=== PATIENT | female | born 1945 | race Caucasian/White ===

== ENCOUNTER 2019-06-08 17:55 | Emergency (ER) | payer OTHER ==
[~2019-06-08] VITALS: Ht 170.2 cm; Wt 79.4 kg
[~2019-06-08 17:55] MED LIST: ASPIRIN325 MG PO; MACROBID 100 M100 MG PO; NORCO 5-325 TA1 EACH PO; ROBAXIN-750750 MG PO
== END 2019-06-08 20:03 | disposition home or self-care (01) ==
LOC: ED 17:55
PROC: 0T9B70Z Drainage of Bladder with Drainage Device, Via Natural or Artificial Opening (ICD-10-PCS; principal; 2019-06-08)
DX: Z00.00 Encounter for general adult medical examination without abnormal findings (principal); F03.90 Unspecified dementia, unspecified severity, without behavioral disturbance, psychotic disturbance, mood disturbance, and anxiety; Z79.82 Long term (current) use of aspirin
CPT/HCPCS: 51701; 80053; 80176; 81001; 84443; 85025; 99284-25; G0480

== ENCOUNTER 2019-07-25 18:48 | Emergency (ER) | payer SELFPAY ==
[~2019-07-25] VITALS: Ht 170.2 cm; Wt 79.4 kg
[2019-07-25] MEDS ORDERED: QUETIAPINE FUMA25 MG PO (19:06)
[2019-07-25] MEDS ORDERED: BACTRIM DS TAB1 EACH PO (19:37)
== END 2019-07-25 20:11 | disposition home or self-care (01) ==
LOC: ED 18:48
DX: N39.0 Urinary tract infection, site not specified (principal); F03.91 Unspecified dementia, unspecified severity, with behavioral disturbance; Z88.8 Allergy status to other drugs, medicaments and biological substances; Z79.899 Other long term (current) drug therapy
CPT/HCPCS: 99283

== ENCOUNTER 2019-07-26 12:19 | Emergency (ER) | payer SELFPAY ==
[~2019-07-26] VITALS: Ht 170.2 cm; Wt 79.4 kg
== END 2019-07-26 14:49 | disposition home or self-care (01) ==
LOC: ED 12:19
DX: F03.91 Unspecified dementia, unspecified severity, with behavioral disturbance (principal); Z88.8 Allergy status to other drugs, medicaments and biological substances; Z79.899 Other long term (current) drug therapy
CPT/HCPCS: 99284

== ENCOUNTER 2019-07-31 23:21 | Emergency (ER) | payer SELFPAY ==
[~2019-07-31] VITALS: Ht 170.2 cm; Wt 79.4 kg
[~2019-07-31 23:21] MED LIST changes: +BACTRIM DS TAB1 EACH PO; +QUETIAPINE FUMA25 MG PO
--- OUTSIDE RECORDS SUMMARY | 2019-07-31 23:24 | XMS ---
PreManage Notification: HASMUKH HANSEN Security Scanner Operator Events No recent Security Events currently on file CRITERIA MET - [facility] - Has Care Guidelines - [facility] - 2 Visits in 30 Days CARE PROVIDERS MARIA FERNANDA HIGGINS Internal Medicine 06/09/2019-Current PHONE: Unknown Zoya has no Care Guidelines for this patient. Care History Medical/Surgical 07/28/2019 [facility] Tita with [facility] will call to schedule patient\T\#39;s follow up visit with clinic. 06/09/2019 [facility] - Patient is currently established with [facility]. If patient is seen in the ED during business hours. Please contact CHWs at [facility]. Care Recommendation: If this patient has had 5 or more Emergency Department visits in the last 12 months.\T\nbsp; Patient will require education on the scope and purpose of the ED as an acute care provider not a Primary Care Provider and should not be utilized for chronic conditions.\T\nbsp; These are guidelines and the provider should exercise clinical judgment when providing care. E.D. VISIT COUNT (12 MO.) [address] [facility] TOTAL 5 NOTE: Visits indicate total known visits. ED/UCC VISIT TRACKING (12 MO.) 07/31/2019 23:21 [facility] [place] TYPE: Emergency COMPLAINT: - URINE PROBLEM 07/26/2019 12:20 [facility] [place] TYPE: Emergency COMPLAINT: - MULTIPLE COMPLAINTS DIAGNOSES: - Allergy status to oth drug/meds/biol subst status - Other exterminator termite (current) drug therapy - Unspecified dementia with behavioral disturbance 07/25/2019 18:48 [facility] [place] TYPE: Emergency COMPLAINT: - ALTERED MENTAL STATUS DIAGNOSES: - Other symptoms and signs involving appearance and behavior - Unspecified dementia with behavioral disturbance - Urinary tract infection, site not specified - Other exterminator termite (current) drug therapy - Allergy status to oth drug/meds/biol subst status 06/08/2019 17:56 [facility] [place] TYPE: Emergency COMPLAINT: - MULTIPLE COMPLAINTS DIAGNOSES: - Encntr for general adult medical exam w/o abnormal findings - Unspecified dementia without behavioral disturbance - exterminator termite (current) use of aspirin 12/24/2018 18:33 [facility] [place] TYPE: Emergency COMPLAINT: - MEDICAL CLEARANCE DIAGNOSES: - Unspecified dementia without behavioral disturbance - Urinary tract infection, site not specified - Disorientation, unspecified INPATIENT VISIT TRACKING (12 MO.) No inpatient visits to display in this time frame [email or web address]
[2019-07-31] MEDS ORDERED: KEFLEX500 MG PO (23:30)
== END 2019-08-01 02:15 | disposition home or self-care (01) ==
LOC: ED 23:21
PROC: 0T9B70Z Drainage of Bladder with Drainage Device, Via Natural or Artificial Opening (ICD-10-PCS; principal; 2019-08-01)
DX: Z03.89 Encounter for observation for other suspected diseases and conditions ruled out (principal); F03.90 Unspecified dementia, unspecified severity, without behavioral disturbance, psychotic disturbance, mood disturbance, and anxiety; Z88.8 Allergy status to other drugs, medicaments and biological substances; Z79.899 Other long term (current) drug therapy
CPT/HCPCS: 51701; 81001; 99283-25

== ENCOUNTER 2020-03-03 17:33 | Emergency (ER) | payer MEDICARE ==
[~2020-03-03] VITALS: Ht 170.2 cm; Wt 79.4 kg
[~2020-03-03 17:33] MED LIST changes: +CIPRO500 MG PO; +KEFLEX500 MG PO
--- OUTSIDE RECORDS SUMMARY | 2020-03-03 17:36 | XMS ---
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 Care History Medical/Surgical 08/04/2019 [facility] Spoke to rep Tita at [facility].\T\nbsp; Advised she needs to set up follow up appt. with Dr. Higgins.\T\nbsp; No answer at home therapy teacher.\T\nbsp; Tita will call tomorrow. 07/28/2019 [facility] Tita with [facility] will call to schedule patient\T\#39;s follow up visit with clinic. 06/09/2019 [facility] - Patient is currently established with [facility]. If patient is seen in the ED during business hours. Please contact CHWs at [facility]. Care Recommendation: If this patient has had [...] providing care. E.D. VISIT COUNT (12 MO.) 6 [facility] TOTAL 6 NOTE: Visits indicate total known visits. ED/UCC VISIT TRACKING (12 MO.) 03/03/2020 17:34 [facility] [place] TYPE: Emergency COMPLAINT: - POSSIBLE UTI 08/08/2019 09:53 [facility] [place] TYPE: Emergency COMPLAINT: - POSS STROKE DIAGNOSES: - Transient cerebral ischemic attack, unspecified - Other detention (current) drug therapy - Allergy status to other drugs, medicaments and biological sub - Urinary tract infection, site not specified - Unspecified dementia with behavioral disturbance - Facial weakness [facility]2019 [email or web address] [place] [facility] COMPLAINT: - URINE PROBLEM DIAGNOSES: - Allergy status to other drugs, medicaments and biological sub - Other detention (current) drug therapy - Encounter for observation for other suspected diseases and co - Unspecified dementia without behavioral disturbance [facility]2019 [email or web address] [place] [facility] COMPLAINT: - MULTIPLE COMPLAINTS DIAGNOSES: - Allergy status to other drugs, medicaments and biological sub - Other 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 [place] TYPE: Emergency COMPLAINT: - MULTIPLE COMPLAINTS DIAGNOSES: - Encounter for general adult medical examination without abnor - Unspecified dementia without behavioral disturbance - termite technician (current) use of aspirin INPATIENT VISIT TRACKING (12 MO.) No inpatient visits to display in this time frame [email or web address]
[2020-03-03] MEDS ORDERED: QUETIAPINE FUM100 MG PO (17:58)
[2020-03-03] MEDS ORDERED: MILK OF MA400 MG/5 M PO (17:59)
[2020-03-03] MEDS ORDERED: TYLENOL325 MG PO (17:59)
[2020-03-03] MEDS ORDERED: KEFLEX500 MG PO (18:55)
== END 2020-03-03 19:58 | disposition home or self-care (01) ==
LOC: ED 17:33
DX: N39.0 Urinary tract infection, site not specified (principal); F03.91 Unspecified dementia, unspecified severity, with behavioral disturbance; Z88.8 Allergy status to other drugs, medicaments and biological substances; Z79.899 Other long term (current) drug therapy
CPT/HCPCS: 51701; 81001; 99284-25; J0696

== ENCOUNTER 2020-04-13 13:13 | Emergency (ER) | payer MEDICARE ==
[~2020-04-13] VITALS: Ht 170.2 cm; Wt 79.4 kg
[~2020-04-13 13:13] MED LIST changes: +MILK OF MA400 MG/5 M PO; +QUETIAPINE FUM100 MG PO; +TYLENOL325 MG PO
--- OUTSIDE RECORDS SUMMARY | 2020-04-13 13:14 | XMS ---
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 Care History Medical/Surgical 08/04/2019 [facility] Spoke to rep Tita at [facility].\T\nbsp; Advised she needs to set up follow up appt. with Dr. Higgins.\T\nbsp; No answer at outpatient receptionist.\T\nbsp; Tita will call tomorrow. 07/28/2019 [facility] Tita with [facility] will call to schedule patient\T\#39;s follow up visit with clinic. 06/09/2019 [facility] - Patient is currently established with [facility]. If patient is seen in the ED during business hours. Please contact CHWs at [facility]. Care Recommendation: If this patient has [...] providing care. E.D. VISIT COUNT (12 MO.) [address] [facility] [address] [facility] TOTAL 7 NOTE: Visits indicate total known visits. ED/UCC VISIT TRACKING (12 MO.) 04/13/2020 13:13 [facility] [place] TYPE: Emergency COMPLAINT: - INGESTION 03/03/2020 17:34 [facility] [place] TYPE: Emergency COMPLAINT: - POSSIBLE UTI DIAGNOSES: - Urinary tract infection, site not specified - Other extermination inspector (current) drug therapy - Allergy status to other drugs, medicaments and biological sub - Unspecified dementia with behavioral disturbance - Dysuria 08/08/2019 09:53 [facility] [place] TYPE: Emergency COMPLAINT: - POSS STROKE DIAGNOSES: - Transient cerebral ischemic attack, unspecified - Other penitentiary (current) drug therapy - Allergy status to other drugs, medicaments and biological sub - Urinary tract infection, site not specified - Unspecified dementia with behavioral disturbance - Facial weakness 07/31/2019 23:21 [facility] [place] TYPE: Emergency COMPLAINT: - URINE PROBLEM DIAGNOSES: - Allergy status to other drugs, medicaments and biological sub - Other extermination inspector (current) drug therapy - Encounter for observation for other suspected diseases and co - Unspecified dementia without behavioral disturbance 07/26/2019 12:20 [facility] [place] TYPE: Emergency COMPLAINT: - MULTIPLE COMPLAINTS DIAGNOSES: - Allergy status to other drugs, medicaments and biological sub - Other extermination inspector (current) drug therapy - Unspecified dementia with behavioral disturbance 07/25/2019 18:48 [facility] [place] TYPE: Emergency COMPLAINT: - ALTERED MENTAL STATUS DIAGNOSES: - Other symptoms and signs involving appearance and behavior - Unspecified dementia with behavioral disturbance - Urinary tract infection, site not specified - Other extermination inspector (current) drug therapy - Allergy status to other drugs, medicaments and biological sub 06/08/2019 17:56 [facility] [place] TYPE: Emergency COMPLAINT: - MULTIPLE COMPLAINTS DIAGNOSES: - Encounter for general adult medical examination without abnor - Unspecified dementia without behavioral disturbance - alf (current) use of aspirin INPATIENT VISIT TRACKING (12 MO.) No inpatient visits to display in this time frame [email or web address]
[2020-04-13] MEDS ORDERED: ABILIFY15 MG PO (13:24)
--- NOTE | 2020-04-13 15:48 | EKG ---
[facility] [address] [place], [place] [address] Signed Normal sinus rhythm Left axis deviation Low voltage QRS Cannot rule out Anterior infarct , age undetermined Abnormal ECG No previous ECGs available Confirmed by ANDRES SONG DO ([id number]) on 04/13/2020 3:47:45 PM Electronically Signed By: ANDRES SONG DO 04/13/20 1548 PATIENT NAME: HASMUKH HANSEN Electrocardiogram DATE OF : 43 PHYSICIAN: ANDRES SONG DO REPORT #: [id number] REPORT IS CONFIDENTIAL AND NOT TO BE RELEASED WITHOUT AUTHORIZATION
[2020-04-13] MEDS ORDERED: KEFLEX500 MG PO (16:57)
== END 2020-04-13 17:44 | disposition home or self-care (01) ==
LOC: ED 13:13
DX: N39.0 Urinary tract infection, site not specified (principal); B96.89 Other specified bacterial agents as the cause of diseases classified elsewhere; F03.90 Unspecified dementia, unspecified severity, without behavioral disturbance, psychotic disturbance, mood disturbance, and anxiety; Z88.8 Allergy status to other drugs, medicaments and biological substances; Z79.899 Other long term (current) drug therapy
CPT/HCPCS: 51701; 71045; 80053; 81001; 84484; 85025; 93005; 93010; 99285-25; G0480

== ENCOUNTER 2020-06-05 09:38 | Emergency (ER) | payer MEDICARE ==
[~2020-06-05] VITALS: Ht 170.2 cm; Wt 79.4 kg
[~2020-06-05 09:38] MED LIST changes: +ABILIFY15 MG PO
--- OUTSIDE RECORDS SUMMARY | 2020-06-05 09:42 | XMS ---
PreManage Notification: HASMUKH HANSNE Security Diabetes Physician Events No recent Security Events currently on file CRITERIA MET - [facility] - Has Care Guidelines CARE PROVIDERS MARIA FERNANDA HIGGINS Internal Medicine 06/09/2019-Current PHONE: [phone] Zoya has no Care Guidelines for this patient. Care History Medical/Surgical 04/15/2020 [facility] Patient has follow up with Dr. Higgins on 04/29/2020. 08/04/2019 [facility] Spoke to rep Tita at [facility].\T\nbsp; Advised she needs to set up follow up appt. with Dr. Higgins.\T\nbsp; No answer at intake coordinator.\T\nbsp; Tita will call tomorrow. 07/28/2019 [facility] Tita with [facility] will call to schedule patient\T\#39;s follow up visit with clinic. E.DOg VISIT COUNT (12 MO.) 8 [facility]. TOTAL 8 NOTE: Visits indicate total known visits. ED/UCC VISIT TRACKING (12 MO.) 2020 09:39 [facility] [place] TYPE: Emergency COMPLAINT: - RIB/BACK PAIN, CONSTIPATION 04/13/2020 13:13 [facility] [place] TYPE: Emergency COMPLAINT: - CONFUSION DIAGNOSES: - Urinary tract infection, site not specified - Other specified bacterial agents as the cause of diseases classified elsewhere - Allergy status to other drugs, medicaments and biological substances - Other skilled nursing (current) drug therapy - Unspecified dementia without behavioral disturbance 03/03/2020 17:34 [facility] [place] TYPE: Emergency COMPLAINT: - POSSIBLE UTI DIAGNOSES: - Urinary tract infection, site not specified - 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 [place] TYPE: Emergency COMPLAINT: - POSS STROKE DIAGNOSES: - Transient cerebral ischemic attack, unspecified - Other buttermilk drier operator (current) drug therapy - Allergy status to other drugs, medicaments and biological substances - Urinary tract infection, site not specified - Unspecified dementia with behavioral disturbance - Facial weakness 07/31/2019 23:21 [facility] [place] TYPE: Emergency COMPLAINT: - URINE PROBLEM DIAGNOSES: - Allergy status to other drugs, medicaments and biological substances - Other skilled nursing (current) drug therapy - Encounter for observation for other suspected diseases and conditions ruled out - Unspecified dementia without behavioral disturbance 07/26/2019 12:20 [facility] [place] TYPE: Emergency COMPLAINT: - MULTIPLE COMPLAINTS DIAGNOSES: - Allergy status to other drugs, medicaments and biological substances - Other buttermilk drier operator (current) drug therapy - Unspecified dementia with behavioral disturbance 07/25/2019 18:48 [facility] [place] TYPE: Emergency COMPLAINT: - ALTERED MENTAL STATUS DIAGNOSES: - Other symptoms and signs involving appearance and behavior - Unspecified dementia with behavioral disturbance - Urinary tract infection, site not specified - Other skilled nursing (current) drug therapy - Allergy status to other drugs, medicaments and biological substances 06/08/2019 17:56 [facility] [place] TYPE: Emergency COMPLAINT: - MULTIPLE COMPLAINTS DIAGNOSES: - Encounter for general adult medical examination without abnormal findings - Unspecified dementia without behavioral disturbance - 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
[2020-06-05] MEDS ORDERED: NITROFURANTOIN50 MG PO (09:59)
== END 2020-06-05 13:05 | disposition home or self-care (01) ==
LOC: ED 09:38
DX: K59.00 Constipation, unspecified (principal); F03.91 Unspecified dementia, unspecified severity, with behavioral disturbance; Z88.8 Allergy status to other drugs, medicaments and biological substances; Z79.899 Other long term (current) drug therapy
CPT/HCPCS: 74022; 99283-25

== ENCOUNTER 2020-06-21 13:28 | Inpatient (IN) | payer MEDICARE ==
[~2020-06-21] VITALS: Ht 170.2 cm; Wt 69.1 kg
[~2020-06-21 13:28] MED LIST changes: +NITROFURANTOIN50 MG PO
--- OUTSIDE RECORDS SUMMARY | 2020-06-21 13:30 | XMS ---
PreManage Notification: HASMUKH HANSEN Security Display Maker Events No recent Security Events currently on file CRITERIA MET - [facility] - Has Care Guidelines - [facility] - 2 Visits in 30 Days CARE PROVIDERS MARIA FERNANDA HIGGINS Internal Medicine 06/09/2019-Current PHONE: [phone] Zoya has no Care Guidelines for this patient. Care History Medical/Surgical 04/15/2020 [facility] Patient has follow up with Dr. Higgins on 04/29/2020. 08/04/2019 [facility] Spoke to rep Tita at [facility].\T\nbsp; Advised she needs to set up follow up appt. with Dr. Higgins.\T\nbsp; No answer at manager voice.\T\nbsp; Tita will call tomorrow. 07/28/2019 [facility] Tita with [facility] will call to schedule patient\T\#39;s follow up visit with clinic. E.D. VISIT COUNT (12 MO.) 8 [facility] TOTAL 8 NOTE: Visits indicate total known visits. ED/UCC VISIT TRACKING (12 MO.) 06/21/2020 13:29 [facility] [place] TYPE: Emergency 2020 09:39 [facility] [place] TYPE: Emergency COMPLAINT: - RIB/BACK PAIN, CONSTIPATION DIAGNOSES: - Pleurodynia - Other terminal operator (current) drug therapy - Constipation, unspecified - Unspecified dementia with behavioral disturbance - Allergy status to other drugs, medicaments and biological substances - Unspecified dementia without behavioral disturbance 04/13/2020 13:13 [facility] [place] TYPE: Emergency COMPLAINT: - CONFUSION DIAGNOSES: - Urinary tract infection, site not specified - Other specified bacterial agents as the cause of diseases classified elsewhere - Allergy status to other drugs, medicaments and biological substances - Other penitentiary (current) drug therapy - Unspecified dementia without behavioral disturbance 03/03/2020 17:34 [facility] [place] TYPE: Emergency COMPLAINT: - POSSIBLE UTI DIAGNOSES: - Urinary tract infection, site not specified - Other terminal operator (current) drug therapy - Allergy status to other drugs, medicaments and biological substances - Unspecified dementia with behavioral disturbance - Dysuria 08/08/2019 09:53 [facility] [place] TYPE: Emergency COMPLAINT: - POSS STROKE DIAGNOSES: - Transient cerebral ischemic attack, unspecified - Other terminal operator (current) drug therapy - Allergy status to other drugs, medicaments and biological substances - Urinary tract infection, site not specified - Unspecified dementia with behavioral disturbance - Facial weakness 07/31/2019 23:21 [facility] [place] TYPE: Emergency COMPLAINT: - URINE PROBLEM DIAGNOSES: - Allergy status to other drugs, medicaments and biological substances - Other penitentiary (current) drug therapy - Encounter for observation for other suspected diseases and conditions ruled out - Unspecified dementia without behavioral disturbance 07/26/2019 12:[address] [facility] [place] TYPE: Emergency COMPLAINT: - MULTIPLE COMPLAINTS DIAGNOSES: - Allergy status to other drugs, medicaments and biological substances - Other penitentiary (current) drug therapy - Unspecified dementia with behavioral disturbance 07/25/2019 18:[address] [facility] [place] TYPE: Emergency COMPLAINT: - ALTERED MENTAL STATUS DIAGNOSES: - Other symptoms and signs involving appearance and behavior - Unspecified dementia with behavioral disturbance - Urinary tract infection, site not specified - Other terminal operator (current) drug therapy - Allergy status to other drugs, medicaments and biological substances INPATIENT VISIT TRACKING (12 MO.) No inpatient visits to display in this time frame [id number]
[2020-06-21] MEDS ORDERED: METAMUCIL POWD575 G1 PO (14:07)
--- NOTE | 2020-06-21 22:00 | NUR ---
PT ARRIVES TO FLOOR VIA STRETCHER, PULLED OVER ON HOVER MAT TO BED. PT TOLERATED WELL. PT DISORIENTED TO ALL, DOES NOT ANSWER QUESTIONS APPROPRIATELY. SPEAK 1-2 WORDS AT A TIME. TELEMETRY UNIT PLACED. PT PULLING AT WIRES. BED ALARM PLACED. CALL LIGHT IN REACH. WHITE BOARD UDPATED. ROOM IN VIEW OF RN STATION WITH CURTAIN OPEN.
--- NOTE | 2020-06-21 22:00 | NUR ---
PT ARRIVES TO FLOOR FROM ED. CHARGE LAVONNE AND CATHLEEN SCHUSTERTA IN ROOM FOR ADMISSION AND VITALS. PATIENT CALM AND COOPERATIVE AT THIS TIME, NO NEEDS.
--- NOTE | 2020-06-21 23:16 | NUR ---
IV BOLUS INFUSING, PT RESTING IN BED, NO NEEDS AT THIS TIME. CURTAIN OPEN, IN VIEW OF NURSES STATION WILL CONT TO MONITOR.
--- NOTE | 2020-06-22 01:35 | NUR ---
ROUNDED ON PATIENT. IN BED WITH EYES CLOSED, BREATHING EVEN AND UNLABORED. IVF INFUSING WNL, IN VIEW OF NURSES STATION. WILL CONT TO MONITOR.
--- NOTE | 2020-06-22 02:05 | NUR ---
VITALS AND I/O'S COMPLETE. ASSESSMENT COMPLETE. PT HAD INCONTINENCE X2, CHANGED ATTENDS W JAVIER CONNOLLY, PATITO CARE DONE. PT COOPERATIVE AND RELAXED. IVF INFUSING WNL, NO OTHER APPARENT NEEDS AT THIS TIME.
--- NOTE | 2020-06-22 04:50 | NUR ---
ROUNDED ON PATIENT, AWAKE IN BED. ALUMINUM MOLDING MACHINE OPERATOR LAVONNE IN ROOM TO WRAP IV WITH COBAN TO DETER PT FROM PULLING. PT PLAYING WITH LEFTOVER COBAN. CALM, RELAXED AT THIS TIME. WILL CONT TO MONITOR.
--- NOTE | 2020-06-22 06:08 | NUR ---
PT ARRIVED TO FLOOR AT 2200, HAS BEEN CALM AND COOPERATIVE, PICKS AT IV AND TELE LEADS WHEN ALONE. ABLE TO REDIRECT WITH STUFFED BEAR, EXTRA COBAN, ETC. VSS, ALERT BUT DISORIENTED TO ALL. SPEECH INAPPROPRIATE TO CONTEXT BUT NOT GARBLED. ON TELE #4. ON ROOM AIR. IVF INFUSING WNL. INCONTINENT OF URINE. BED ALARM ON, CURTAIN OPEN, DOES NOT USE CALL LIGHT.
--- NOTE | 2020-06-22 07:31 | NUR ---
REPORT RECEIVED. PT IN BED AWAKE D5LR AT 150ML/HR INFUSING. BED ALARM IN PLACE AND VISIBLE FROM NURSING STATION.
--- NOTE | 2020-06-22 07:43 | NUR ---
PATIENT SITTING UP IN BED. WHITE BOARD UPDATED. PATIENT'S HANDS AND FACE WASHED. CALL LIGHT WITHIN REACH. NO OTHER NEEDS AT THIS TIME
--- NOTE | 2020-06-22 09:00 | NUR ---
PATIENT ASSISTED STAND BY WITH WALKER TO [facility] D/T NO VOID AND DRY ATTNDS. PY W/ VOID AND FIRM BM COMPLETED. PT THEN ASSISTED TO CHAIR FOR BREAKFAST. FOOD CUT TO BITE SIZE AND PATIENT ATE INDEPENDENTLY. CHAIR ALARM IN PLACE. ALL MEDICATIONS BUT ASPRIN CRUSHED AND PLACED IN APPLE SAUCE. LUNGS DIM. BOWEL TONES ACTIVE. PT AWAKE BUT DOES NOT FOLLOW COMMANDS OR COMMUNICATE NEEDS.
--- NOTE | 2020-06-22 09:30 | NUR ---
Attempted to speak with pt, she is unable to answer question and does not show any recognition she has been spoken to. Called her sister Perla. Pt has had dementia for several years, rapid decline in the last year. Her remote computer terminal operator boyfriend a year ago. Per sister, pt no longer recognizes family. She resides at [facility]. Sister will drive her when she returns. I called [facility] and pt may return on dc.
--- NOTE | 2020-06-22 09:34 | NUR ---
PATIENT SITTING UP IN CHAIR. PATIENT ASSISTED TO EAT HER BREAKFAST. VITAL SIGNS AND I&O DONE. CALL LIGHT WITHIN REACH. NO OTHER NEEDS AT THIS TIME
--- NOTE | 2020-06-22 11:45 | NUR ---
PATIENT SITTING UP IN CHAIR. PATIENT ASSISTED TO USE THE BASE COMMODE. TWO PERSON ASSISTING. PATIENT INCONTINENT OF URINE. PERICARE PERFORMED. PATIENT BACKS TO CHAIR. GOWN CHANGED. SETS UP TABLE FOR LUNCH. CHAIR ALARM ON. CALL LIGHT WITHIN REACH. NO OTHER NEEDS AT THIS TIME
--- NOTE | 2020-06-22 12:00 | NUR ---
PT SITTING UP IN CHAIR EATING LUNCH. CHAIR ALARM IN PLACE. VISIBLE FROM NURSING STATION.
[2020-06-22] MEDS ORDERED: [UNRECOGNIZED DRUG - OTHER] TOP (12:16)
[2020-06-22] MEDS ORDERED: MILK OF MA400 MG/5 M PO (12:17)
[2020-06-22] MEDS ORDERED: SEROQUEL25 MG PO (12:18)
--- NOTE | 2020-06-22 12:19 | NUR ---
MED REC COMPLETE
--- NOTE | 2020-06-22 12:45 | NUR ---
PT PULLED IV OUT. RESTARTED IN LEFT WRIST. WRAPPED WITH COBAN. PT SITTING UP IN CHAIR. FLUIDS INFUSING WNL NOW. CHAIR ALARM ON.
--- NOTE | 2020-06-22 12:57 | NUR ---
PATIENT SITTING UP IN CHAIR. VITAL SIGNS AND I&O DONE. CALL LIGHT WITHIN REACH. NO OTHER NEEDS AT THIS TIME
--- NOTE | 2020-06-22 13:27 | NUR ---
PT SITTING IN CHAIR, WAS UNABLE TO GET PT'S ATTENTION. PT UNRESPONSIVE, SEEMS TO BE OCCUPIED WITH SOMETHING SHE IS VISUALIZING ININ HER HAND. WILL FOLLOW
--- NOTE | 2020-06-22 14:00 | NUR ---
AMBULATED PT TO BATHROOM FOR VOID THEN OUT IN BOEWN. BACK TO CHAIR.
--- NOTE | 2020-06-22 14:46 | NUR ---
WRAPPED PT IV AGAIN PT HAD UNDONE IT. REMINDED TO LEAVE ALONE
--- NOTE | 2020-06-22 16:50 | EKG ---
[facility] [address] [place] [address] Signed Normal sinus rhythm Left axis deviation Low voltage QRS Inferior infarct , age undetermined Cannot rule out Anterior infarct (cited on or before 24-DEC-2018) Abnormal ECG When compared with ECG of 13-APR-2020 13:27, Inferior infarct is now present Inverted T waves have replaced nonspecific T wave abnormality in Inferior leads Confirmed by VIOLET GAONA MD ([id number]) on 06/22/2020 4:50:36 PM Electronically Signed By: VIOLET GAONA MD 06/22/20 1650 PATIENT NAME: HASMUKH HANSEN Electrocardiogram DATE OF : 43 PHYSICIAN: VIOLET GAONA MD REPORT #: [id number] REPORT IS CONFIDENTIAL AND NOT TO BE RELEASED WITHOUT AUTHORIZATION
--- NOTE | 2020-06-22 17:18 | NUR ---
PATIENT SITTING UP IN CHAIR. VITAL SIGNS AND I&O DONE. SETS UP TABLE FOR DINNER. CALL LIGHT WITHIN REACH. CHAIR ALARM ON. NO OTHER NEEDS AT THIS TIME
--- NOTE | 2020-06-22 17:24 | NUR ---
PT SITTING UP IN CHAIR. PULLED IV OUT. RESTARTED IN RIGHT WRIST. PT TOLERATED WELL.
--- NOTE | 2020-06-22 18:47 | NUR ---
PT PULLED IV AGAIN. RESTARTEDE IN RIGHT AC. CONSTANTIN PLACED AND GOWN PUT ON PT AND TAPED AROUND ARM.
--- NOTE | 2020-06-22 19:00 | NUR ---
REPORT RECEIVED FROM GREER RN, PT AWAKE BUT DROWSY IN BED. BREATHING EVEN AND UNLABORED. IVF INFUSING WNL, BED ALARM ON, NO APPARENT NEEDS AT THIS TIME. CURTAIN OPEN, IN VIEW OF NURSES STATION.
--- NOTE | 2020-06-22 21:00 | NUR ---
QUEENIE TORRES AND THIS ABSTRACT CHECKER HELPED PATIENT USE THE BEDSIDE COMMODE. PATIENT IS INCONTINENT. WIPED/CLEANED AND PUT ON NEW GOWN AND ATTENDS. QUEENIE TORRES WAS WITH PATIENT.
--- NOTE | 2020-06-22 21:00 | NUR ---
MEDICATIONS ADMINISTERED, VITALS AND I/O'S COMPLETE, AND ASSESSMENT COMPLETE. PT ABLE TO TAKE PILLS CRUSHED WITH APPLESAUCE. PT UP TO BSC WITH 2PA AND FWW, THEN WALKED 1 LAP [address]ALLWAY WITH THIS RN USING FWW. TOLERATED WELL. GOWN AND LINEN CHANGED, ATTENDS IN PLACE, IV WRAPPED IN KERLEX AND TUCKED UNDER ROBE TO DETER PULLING. PT HAS MULTIPLE ITEMS AT BEDSIDE TO HOLD. IS NOW TUCKED INTO BED WITH WARM BLANKET, BED ALARM ON, IN VIEW OF NURSES STATION. IV INFUSING WNL.
--- NOTE | 2020-06-22 22:00 | NUR ---
ROUNDED ON PATIENT, RESTING IN BED WITH EYES CLOSED, BREATHING EVEN AND UNLABORED. LIGHTS OFF, BED ALARM ON. CURTAIN OPEN, IN VIEW OF NURSES STATION FOR SAFETY.
--- NOTE | 2020-06-22 23:45 | NUR ---
ROUNDED ON PATIENT, UP TO BSC TO VOID. NO INCONTINENCE, 400 ML OUT. PT AWAKE IN BED, CALM AND RELAXED. CURTAIN OPEN, BED ALARM ON, WILL CONT TO MONITOR.
--- NOTE | 2020-06-23 02:17 | NUR ---
ROUNDED ON PATIENT, AWAKE SITTING UP IN BED HOLDING TAPE AND OTHER OBJECTS, FREQUENTLY ADJUSTS HERSELF BUT IS NOT ATTEMPTING TO LEAVE BED WITHOUT ASSISTANCE. CALM AND COOPERATIVE, ALTHOUGH GENERALLY DISORIENTED TO COMMANDS. CURTAIN OPEN, ABLE TO SEE FROM NURSES STATION DOES NOT CALL APPROPRIATELY. WILL CONT TO MONITOR.
--- NOTE | 2020-06-23 03:55 | NUR ---
ROUNDED ON PATIENT, AWAKE BUT DROWSY IN BED. REPOSITIONED IN BED, ASSESSMENT COMPLETE, PROVIDED WITH BLANKETS. NO OTHER NEEDS AT THIS TIME. BED ALARM ON, IN VIEW OF NURSES STATION, WILL CONT TO MONITOR.
--- NOTE | 2020-06-23 06:16 | NUR ---
VITALS COMPLETE, I/O'S COMPLETE. PT ATTENDS, LINEN AND GOWN CHANGED D/T INCONTINENCE. IVF INFUSING WNL. PT CALM AND COOPERATIVE WITH CARE. NO APPARENT NEEDS AT THIS TIME, WILL CONTINUE TO MONITOR.
--- NOTE | 2020-06-23 07:30 | NUR ---
THIS RN RECEIVED REPORT FROM MELISSA JEROME. PT LAYING IN BED. CALL LIGHT WITH REACH AND PT IS CURRENTLY PICKING AT THE BLANKETS
--- NOTE | 2020-06-23 07:51 | NUR ---
PATIENT RESTING IN BED. WHITE BOARD UPDATED. PATIENT ASSISTED TO USE THE BASE COMMODE. PATIENT TRANSFERRED TO CHAIR. TWO PERSON ASSISTING. HANDS AND FACE WASHED. LINENS CHANGED. CALL LIGHT WITHIN REACH. CHAIR ALARM ON. NO OTHER NEEDS AT THIS TIME
--- NOTE | 2020-06-23 07:55 | NUR ---
this rn in pts room to do morning asssessment on pt. pt up to chair this am and this rn got report from [facility] that pt had large bm. this rn only giving the miralax to ensure that pt remains un constepated during this shift.
--- NOTE | 2020-06-23 09:06 | NUR ---
PATIENT SITTING UP IN CHAIR. VITAL SIGNS AND I&O DONE. CALL LIGHT WITHIN REACH. NO OTHER NEEDS AT THIS TIME
--- NOTE | 2020-06-23 09:15 | NUR ---
Discussed with Dr. Saldana in 0830 report. Plans for dc tomorrow. Updated Rn needs to see pt and eval prior to dc.
--- NOTE | 2020-06-23 09:30 | NUR ---
H&P, Notes, imaging faxed to RN at [facility] per request. Rn to do assessment for change of condition.
--- NOTE | 2020-06-23 12:45 | NUR ---
THIS RN INTO PTS ROOM TO GIVE PT THE HER POTASSIUM TABLETS. PT SITTING IN CHAIR AND SPITTING HER SPIT ON THE SIDE OF THE CHAIR. THIS RN ATTEMPTED TO HAVE PT TAKE HER TABLETS BUT KEPT SPITTING THEM OUT WITH ATTEMPT OF APPLESAUCE, PUDDING AND WATER. THIS RN CALLED PHARMACY TO CHANGE THE ORDER TO LIQUID
--- NOTE | 2020-06-23 13:22 | NUR ---
PATIENT SITTING UP IN CHAIR. ASSISTED PATIENT TO USE THE BASE COMMODE. PT INCONTINENT OF URINE. PERICARE PERFORMED. PT BACKS TO BED. TWO PERSON ASSISTING. VITAL SIGNS AND I&O DONE. BED ALARM ON. CALL LIGHT WITHIN REACH. NO OTHER NEEDS AT THIS TIME. .
--- NOTE | 2020-06-23 14:00 | NUR ---
PT UNRESPONSIVE, WILL CONTINUE TO FOLLOW
--- NOTE | 2020-06-23 14:26 | NUR ---
Called to clarify with [facility] if Rn will be assessing pt today. Per 829 report plans on dc tomorrow morning. They will call and check with the RN.
--- NOTE | 2020-06-23 18:09 | NUR ---
PT SITTING UP IN CHAIR. ASSISTED PT TO USE THE BASE COMMODE. PT BACKS TO BED. TWO PERSON ASSITING. VITAL SIGNS AND I&O DONE. THIS HIDE BUYER TRIED TO FEED THE PT BUT SHE DID NOT EAT. PT DID NOT OPEN HER EYES. RN NOTIFIED. BED ALARM ON. CALL LIGHT WITHIN REACH. NO OTHER NEEDS AT THIS TIME
--- NOTE | 2020-06-23 18:20 | NUR ---
THIS RN CALLED TO ALERT HIM TO PTS EYEELIDS BEING A BIT TEARDROP DROOPY AND EDEMATOUS. STATED HE THINKS ITS DUE TO PTS GOOD HYDRATION STATUS. PTS EYES ARE NOT RED OR APPEAR TO BE PAINFUL AND PT HAS NOT BEEN RUBBING HER EYES
--- NOTE | 2020-06-23 19:20 | NUR ---
REPORT RECEIVED FROM JOE JEROME, PATIENT AWAKE IN BED, CALM AND RELAXED AT THIS TIME, IVF INFUSING WNL. NO APPARENT NEEDS AT THIS TIME, WILL CONT TO MONITOR.
--- NOTE | 2020-06-23 19:50 | NUR ---
OBSERVING PT ATEMPTING TO GET OUT OF BED, REPEATED ASKING OF PT WHERE SHE IS GOING, ABLE TO DETERMINE PT NEEDED TO VOID, MUTLIPLE TIMES TO REDIRECT PT OF TASK, PT HAS A HABIT OF SPITING IN THE FLOOR, ON SHEETS, OR GOWN, PT NOW IN BED ATFER MULTIPLE ATEMPTS TO GET PT INTO BED, RN IN AT THIS TIME TO ASST GETTING PT SITUATED WHILE I ASWERED ANOTHER PT CALL
--- NOTE | 2020-06-23 21:00 | NUR ---
GOT PT VITALS AT THIS TIME, FRESH WATER IN CUP
--- NOTE | 2020-06-23 21:50 | NUR ---
MEDICATIONS ADMINISTERED, PT ABLE TO TAKE PO MEDS CRUSHED WITH APPLESAUCE, TOOK MIRALAX WITH CLEAR ENSURE. PT VOIDED W BSC, WALKED IN HALLWAY WITH THIS RN AND DEONDRE RN. BACK TO BED WITH WARM BLANKET PROVIDED. IVF INFUSING WNL. BED ALARM ON, IN VIEW OF NURSES STATION.
--- NOTE | 2020-06-23 23:00 | NUR ---
PT NOTED TO BE DRAPING LEGS OVER SIDE OF BED. UP TO BSC, INCONTINENT OF STOOL, ATTENDS AND LINENS CHANGED. PATITO CARE DONE. PT BACK TO BED POSITIONED WITH PILLOWS. IVF INFUSING WNL. BED ALARM ON, WILL CONT TO MONITOR.
--- NOTE | 2020-06-24 00:10 | NUR ---
WHILE PASSING PT RM, CUAGHT PT WITH GOWN ALL THE WAY OFF, REDRESSED PT, PT IS LAYING DOWN IN BED AT THIS TIME
--- NOTE | 2020-06-24 02:12 | NUR ---
PATIENT RESTING IN BED, EYES CLOSED, BREATHING EVEN AND UNLABORED. NO APPARENT NEEDS OR DISTRESS. BED ALARM ON, CURTAIN OPEN. WILL CONT TO MONITOR.
--- NOTE | 2020-06-24 03:51 | NUR ---
NEW IV FLUIDS HUNG, PATIENT AWAKE, DROWSY LAYING IN BED. WAKES TO VOICE. ASSESSMENT COMPLETE. IVF INFUSING WNL. NO OTHER NEEDS AT THIS TIME. BED ALARM ON.
--- NOTE | 2020-06-24 05:30 | NUR ---
VITALS AND I/O'S COMPLETE. PT INCONTINENT W ATTENDS, CHANGED AND REPOSITIONED IN BED WITH QUEENIE MENDOSA. PT CALM AND COOPERATIVE WITH CARE, NO OTHER NEEDS AT THIS TIME. BED ALARM ON, WILL CONTINUE TO MONITOR.
--- NOTE | 2020-06-24 07:33 | NUR ---
THIS RN RECEIVED REPORT FROM MELISSA JEROME. PT SITTING UP IN BED AND IS SPITTING ON HER BEDDING. THIS RN WILL CONTINUE TO MONITOR THIS BEHAVIOR THROUGHOUT THE DAY AND WILL PROVIDE PT WITH TOWELS.
--- NOTE | 2020-06-24 08:12 | NUR ---
Latest note faxed to [facility], with notification pt will dc today if labs wnl. Awaiting labs.
--- NOTE | 2020-06-24 08:28 | NUR ---
THIS RN IN PTS ROOM TO GIVE PT HER MORNING BOWEL MEDS AND DO MORNING ASSESSMENT. PT SITTING UP IN BED AND WHEN THIS RN SAID "HI" THIS AM PT REPLIED WIHT "HI" WELL. PT THEN BEGAN SAYING WORDS THAT HAD NO CONTEXT TO THE SITUATION. PT NO OPENING EYES THIS AM. WHEN THIS RN OFFERED PT AN ENSURE THROUGH THE STRAW, SIDE OF THE CUP AND WITH A SPOON PT MOVED HER HEAD AWAY. PT APPEARS TO NOT BE INTERESTED IN HAVING ANYTHING TO DRNIK THIS AM. THIS RN WILL OFFER THE ENSURE FREQUENTLY THROUGHOUT THE AM.
--- NOTE | 2020-06-24 11:00 | NUR ---
Notifed by Liliya Castañeda from [facility] they will not take back. Informed they have to take her back. Liliya states she is above their level of care. Reminded we have asia these converstaions in the past. They have to take the proper steps and automotive service consultant her a 30 day move out notice. She states she and an RN evaluated pt and she is a 2 person assist and they will not take. Informed I am notifying the state.
--- NOTE | 2020-06-24 11:00 | NUR ---
THIS RN AND MEGHA CONNOLLY IN PTS ROOM TO CLEAN HER UP AFTER HAVING WHAT APPEARED TO BE MULTIPLE INCONTINET URINE SPELLS. PT STILL DOING HER SPITTING BEHAVIOR. PT ALSO STILL REFUSING TO TAKE SIPS OF HER ENSURE THIS AM. THIS RN WAS ABLE TO GET PT TO TAKE A COUPLE SIPS OF HER ENSURE AROUND 0945
--- NOTE | 2020-06-24 11:45 | NUR ---
Received call from Karina Vinod, pt's sister. She is very upset stating she was notified by [facility], pt cannot return. [facility] in [place] is closing tomorrow and other pts are moving to [place]. They will not take Rossy as she is above their level of care. Notified I have talked with the state, Leo Castañeda, and she is calling Evin Nilay and will call me back. Updated they have to give her a 30 day move out notice. Called and spoke with the Rn who was present when assessment by [facility] was completed. She states she became upset with the staff as when they entered one was wearing a lace mask and would not wear a hospital grade mask. They then asked several times, if pt was a 2 person assist. She told them pt was able to walk in the [place] with 1 person assist. At times they used two staff if available, but pt walked with the cosmetic dentist RN without other staff.
--- NOTE | 2020-06-24 12:20 | NUR ---
Return call from Leo Castañeda at [facility]. She states I need to call [facility]: 1. They must take pt back 2. Must give pt a 30 day move out notice 3. If they questions this, they need to contact their licensing group. She will also call them. Called Liliya at [phone] and she refuses pt and states she will call. Leo Castañeda.
[2020-06-24] MEDS ORDERED: LORAZEPAM0.5 MG PO (13:01)
--- NOTE | 2020-06-24 13:20 | NUR ---
Called Leo and asked if Mela had called. She states she has not. She will call the state and call me back. She states they are unaware [facility] is closing.
--- NOTE | 2020-06-24 13:50 | NUR ---
Notified by Freedom Cortés, Leo Castañeda called. I was on the phone so she left a message with Freedom, she request I call her back at 4 pm. They have requested [facility] respond why they are not accepting this pt.
--- NOTE | 2020-06-24 15:50 | NUR ---
Called [facility], [facility] has not responded. She states she cannot force them to take this pt, it is being reviewed by Osmar. She asks I call her tomorrow for an update. I called Karina and updated. Asked if she would like me to check for placement at other facilities. She would like me to do so, she states she is older than her sister and unable to care for her. Perla is pts POA> Called [facility] and they do not have any rooms. Called [facility] and they have 1 room in their memory care. Radha Busby requests a chart. Progress notes, med list, face sheet, H&P faxed to [facility]. They will call me back tomorrow.
--- NOTE | 2020-06-24 18:31 | NUR ---
Spoke with Leena from [facility]. She has openings in her AFC. Chart sent, she will call pt's sister and adán Blair tomorrow.
--- NOTE | 2020-06-24 19:00 | NUR ---
AROUND 1130 WENT IN TO CHECK ON PATIENT TO SEE IF SHE WAS DRY AND SHE WAS NOT. SO I ASKED KUMAR TO PLEASE COME IN AND HELP ME CHANGE HER AND WE HAD TO ALSO CHANGED HER BED LINENS.
--- NOTE | 2020-06-24 21:52 | NUR ---
In bed, room air, semi coop with assessments. does not follow instructions. picking at things, takes gown off . redirectable after a few cues. sitting up in bed, still taking off gown, calm. bed alarm on. call light at hands reach
--- NOTE | 2020-06-24 23:16 | NUR ---
INCONTINENT OF URINE, ATTENDS CHANGED, BED ALARM ON, ALL PROCEDURES EXPLAINED, COOP, TAKES GOWN OFF, COVERED WITH BLANKET. ON ROOM AIR
--- NOTE | 2020-06-24 23:17 | NUR ---
CUAGHT PT WITH LEGS OVER THE SIDE RAIL, BED ALARM SET OFF, CHANGE PT DUE TO INCT, BOOSTED IN BED, GOWN PUT BACK ON PT, ALARM SET AT THIS TIME
--- NOTE | 2020-06-25 00:57 | NUR ---
RESTING, EYES CLOSED, CALM, TOOK CLOTHES AND LINEN OFF, WARM BLANKET APPLIED. CALL GAYTAN AT HANDS REACH
--- NOTE | 2020-06-25 01:50 | NUR ---
IN RM DUE TO PT GETTING OUT OF BED, GOT PT BACK INTO BES, GOWN BACK ON, CHANGED PT ATTENDS, NO FURTHER NEEDS AT THIS TIME
--- NOTE | 2020-06-25 03:15 | NUR ---
resting, sitting up in bed, calm, call light at hands reach, bed alarm on.
--- NOTE | 2020-06-25 05:25 | NUR ---
Pt awake, trying to get out of bed several times, sleeps off and on on sitting position. trying to pull things out of air or from covers. Takes her gown and linens off often. has been incontinent of urise several times. attends in place and changed. skin care done. walked 1 pa/fww around bed and back into bed. did well. Not drinking when given fluids. took SL off. site intact. call light at hands reach. bed alarm on. pt baseline confusion, all procedures explained. takes several cues but is unable to follow instructions fall precautions in place
--- NOTE | 2020-06-25 09:00 | NUR ---
Called and spoke with Leena from [facility]. She states she spoke with the sister and she felt Rossy needs to be in a locked unit. Called and spoke with Wendy from [facility]. Reviewed pt has not been agitated or acting out since she has been here. They will call the sister to discuss admission and pricing.
--- NOTE | 2020-06-25 09:45 | NUR ---
pt given morning meds with apple sauce. morning assessment completed. Lungs clear, bowel tones active. Awaiting placement as DC order was given by MD yesterday. Encouraging fluid intake and aide in to help pt with eating breakfast. Pt remains incontinent x2. Briefs changed and in fresh gown. Bed alarm on and side rails up for pt safety. Call light in reach but pt does not use appropriately.
--- NOTE | 2020-06-25 10:00 | NUR ---
Received call from Radha JEROME at [facility]. They will accept this pt. She request we fill Ativan through the weekend until they can filled from their mail order pharm, she has spoken with the family and they will provide a bed. Pt can admit as soon as the bed arrives. She states sister is at the furniture store looking for a bed. I will call sister. Called and asked [facility] if the bed pt has been using is her bed. I spoke with Linda and she states it is their bed, but pt may have it as it will no longer be needed. I asked if they would transport it, they cannot as they are moving their pt's to [place] today. She also state they will need to pickup by 1pm as there will not be anyone in the building after 1pm. Called and spoke with pt's sister, Perla. She states she can get her daughter and nephew to move the bed. Let her know everyone will be gone from [facility] by 1 pm. Karina states they will be there before 1.
--- NOTE | 2020-06-25 12:30 | NUR ---
Dr Westbrook completed orders and orders/RX faxed to [facility]. Called and spoke with Anh, she will call when the bed arrives.
--- NOTE | 2020-06-25 13:33 | NUR ---
PT UP TO BSC WITH AIDE AND CHARGE AT SIDE. ABLE TO VOID. URINE IS CONCENTRATED TARIQ. PT ATTEMPTED TO CLIMB OUT OF BED MULTIPLE TIMES AND WAS BECOMING AGITATED PER MECHANICAL MAINTENANCE SUPERVISOR, RADHA WHO GAVE 0.5 MG ATIVAN FOR AGITATION. PT NOW IN BED ON RIGHT SIDE WITH SIDE RAILS UP FOR PT SAFETY.
--- NOTE | 2020-06-25 14:05 | NUR ---
Notified pt may go to [facility]. Charge nurse and wc notified. NOtified pt's sister she will [facility] next [facility] or so. Called and updated Leo Castañeda from [facility].
--- NOTE | 2020-06-25 14:58 | NUR ---
GOT PT DRESSED. VSS. AWAITING ARRIVAL OF WHEELCHAIR VAN TO [place] TO [facility].
--- NOTE | 2020-06-25 15:46 | NUR ---
REPORT CALLED AND GIVEN TO JOE AT [facility]. RESIDENTIAL REMODELING SUBCONTRACTORRADHA SENT LORAZEPAM W/ PT FOLDER TO FACILITY.
== END 2020-06-25 15:12 | DRG 557 ==
LOC: ED 13:28 → MS 13:30
PROVIDERS: ADMIT Internal Medicine; ATTEND Internal Medicine
DX: M62.82 Rhabdomyolysis (principal); G93.41 Metabolic encephalopathy; K72.00 Acute and subacute hepatic failure without coma; F02.81 Dementia in other diseases classified elsewhere, unspecified severity, with behavioral disturbance; Z20.828 Contact with and (suspected) exposure to other viral communicable diseases; T43.595A Adverse effect of other antipsychotics and neuroleptics, initial encounter; G30.9 Alzheimer's disease, unspecified; R79.89 Other specified abnormal findings of blood chemistry; Z66 Do not resuscitate; Z88.8 Allergy status to other drugs, medicaments and biological substances; Z79.899 Other long term (current) drug therapy
CPT/HCPCS: 36415; 70450; 71045; 76705; 80053; 81001; 82533; 82550; 82553; 83735; 83880; 84100; 84439; 84443; 84484; 85025; 93005; 93010; 99285-25; C9803; G0480; J1650; J7121; U0003